=== PATIENT | female | born 1980 | race Caucasian/White ===

== ENCOUNTER 2016-08-26 17:29 | Inpatient (IN) | payer MEDICAID ==
[~2016-08-26] VITALS: Ht 152.4 cm; Wt 79.4 kg
[2016-08-26 17:55] LABS: BASOPHILS 0.2 % (0.0-2.0); EOSINOPHILS 0.3 % (0-7); IMMATURE GRANULOCYTES 0.4 % (0-5); MCH 30.2 pg (26.0-34.0); MCHC 33.3 g/dL (31.0-37.0); MCV 90.5 fL (80.0-100.0); MEAN PLATELET VOLUME 10.3 fL (7.4-10.4); MONOCYTES 10.2 % (2-11); NEUTROPHILS 75.9 % (40-80); PLATELET COUNT 329 10x3/uL (130-400); RBC 4.64 10x6/uL (4.00-5.40); RDW 13.3 % (11.5-14.5); WBC 14.1 10x3/uL (4.8-10.8)
[2016-08-26 18:18] LABS: APPEARANCE CLOUDY (CLEAR); BACTERIA MODERATE /hpf (NONE SEEN); BILIRUBIN NEGATIVE (NEGATIVE); COLOR DK YELLOW (YELLOW); GLUCOSE NEGATIVE (NEGATIVE); KETONE LARGE mg/dL (NEGATIVE); LEUKOCYTE ESTERASE TRACE (NEGATIVE); MUCUS <1+ /lpf (NONE SEEN); NITRITE NEGATIVE (NEGATIVE); PROTEIN NEGATIVE (NEGATIVE); RED CELLS - URINE 0-5 /hpf (0-5); WHITE CELLS - URINE OCC /hpf (0-5)
[2016-08-26 18:24] LABS: HCG URINE NEGATIVE (NEGATIVE)
[2016-08-26 18:36] LABS: ALBUMIN 2.9 g/dL (3.4-5.0); ALKALINE PHOSPHATASE 340 U/L (46-116); ALT (SGPT) 92 U/L (10-68); AMYLASE - SERUM 18 U/L (25-115); CALC OSMOLALITY 269 mosm/kg (275-300); CALCIUM 9.1 mg/dL (8.5-10.1); CARBON DIOXIDE 25.8 mmol/L (21.0-32.0); CHLORIDE - SERUM 96 mmol/L (98-107); CREATININE - SERUM 0.6 mg/dL (0.6-1.3); LIPASE 85 U/L (73-393); POTASSIUM - SERUM 4.1 mmol/L (3.5-5.1); PROTEIN - SERUM 7.4 g/dL (6.4-8.2); SODIUM 135 mmol/L (136-145); UREA NITROGEN 7 mg/dL (7-18); eGFR NON AFRICAN AMERICAN > 90 mL/min (90-120)
[2016-08-26 18:38] LABS: GLUCOSE 139 mg/dL (74-106)
[2016-08-26 22:46] VITALS: BP 118/72; BMI 34.2
--- NOTE | 2016-08-26 23:16 | NUR ---
REC'D FROM ER DEPT PER WC TO ROOM 2237 A 36 Y/O W/FE PER SERVICES DR. VANEGAS WITH DX CHOLECYCTITIS. ALLERGIC TO CLOVES. SALINE LOCK PATENT RT ARM SALINE LOCK. ASSESSMENT PER ADMIT PACKET. EATING REGULAR SANDWICH TRAY THEN WILL BE NPO AFTER MIDNIGHT.
[2016-08-27] VITALS (11 sets, daily range): BP systolic 100–130; BP diastolic 49–87
--- NOTE | 2016-08-27 00:32 | NUR ---
C/O PAIN IN ABDOMEN RATES PAIN LEVEL #6. DILAUDID 1MG IVP GIVEN FOR PAIN CONTROL.
--- NOTE | 2016-08-27 02:00 | NUR ---
MEDS GIVEN PER SEP. SALINE LOCK PATENT RT ARM.
--- NOTE | 2016-08-27 03:00 | NUR ---
REMAINS NPO FOR POSSIBLE SURGERY.
--- NOTE | 2016-08-27 05:28 | NUR ---
RESTING QUIETLY DENIES NEEDS.
--- NOTE | 2016-08-27 07:05 | NUR ---
PT LYING SUPINE WITH EYES CLOSED AND RESPIRATIONS EVEN AND NON LABORED. CALL LIGHT IN REACH, BED IN LOWEST POSITION WITH WHEELS LOCKED AND SRX2. WILL CONTINUE WITH PLAN OF CARE.
--- NOTE | 2016-08-27 08:00 | NUR ---
SCHEDULED MEDICATIONS ADMINISTERED AT THIS TIME WELL PRN DILAUDID 1MG IV FOR PAIN 6/10 ABDOMINALLY. IV TO RIGHT FOREARM PATENT. BOLUS OF NS INITIATED AT THIS TIME PER ORDER. ASSESSMENT PERFORMED PER FLOWSHEET. REMAINS NPO FOR SURGERY AND DR VANEGAS IN ROOM ASSESSING PT. CALL LIGHT IN REACH, WILL CONTINUE WITH PLAN OF CARE.
--- NOTE | 2016-08-27 08:50 | NUR ---
PRN TYLENOL 650MG ADMINISTERED AT THIS TIME FOR TEMPERATURE 101.3. CONSENT FORMS SIGNED AND WITNESSED FOR LAPARASCOPIC CHOLECYSTECTOMY AT THIS TIME. DENIES NEEDS OR PAIN. CALL LIGHT IN REACH, WILL CONTINUE WITH PLAN OF CARE. NS BOLUS COMPLETE AND IV FLUIDS INITIATED PER ORDER.
--- NOTE | 2016-08-27 09:56 | NUR ---
TEMPERATURE RE-CHECKED AND 97.5 TEMPORAL AT THIS TIME. PT REMAINS NPO AND DENIES PAIN. CALL LIGHT IN REACH, WILL CONTINUE WITH PLAN OF CARE.
--- NOTE | 2016-08-27 11:31 | NUR ---
Patient Name: ESVIN BERNARD Admission Status: ER Accout number: [id number] Admission Date: 08-26-2016 : 1980 Admission Diagnosis: Attending: RAMON Current LOS: 1 Anticipated DC Date: 08-29-2016 Planned Disposition: Home or Self Care Primary [facility] [place] [facility] Discharge Planning Comments: CM MET WITH PATIENT REGARDING D/C NEEDS AND PLANS. PATIENT STATED SHE LIVES WITH FAMILY AND THEY ARE A FRIEND WILL PICK HER UP AT DISCHARGE. PATIENT STATED THERE ARE 3 STEPS W/RAILS TO ENTER HOME AND NO STAIRS INSIDE. PATIENT STATED SHE IS INDEPENDENT AND HAS NO DME AT HOME. PATIENTS PCP IS DR. KRISTINA DOWNING AND PHARMACY IS [facility] [address]. PATIENT DOES NOT THINK SHE WILL NEED HOME HEALTH. CM WILL CONTINUE TO FOLLOW PATIENT WITH D/C NEEDS AND PLANS. PCP DR. KRISTINA [facility] [address] [phone] ELISE PORTER (SISTER) [phone] Extractions Technician: Rosalia Reyna Is the patient Alert and Oriented? Yes 0 * How many steps to enter\exit or inside your home? 3 W/RAILS 0 * PCP DR. KRISTINA DOWNING 0 * Pharmacy [facility] [address] 0 * Preadmission Environment Home with Family 0 * ADLs Independent 0 * Equipment None 0 * List name and contact numbers for known caregivers / representatives who currently or will assist patient after discharge: CHADWICK PORTER (SISTER) [phone] * Community resources currently utilized None 0 * Additional services required to return to the preadmission environment? Yes 0 * Can the patient safely return to the preadmission environment? Yes 0 * Has this patient been hospitalized within the prior 30 days at any hospital? No 0 Grand Total: 0
--- NOTE | 2016-08-27 12:33 | NUR ---
PRE OPERATIVE MEDICATIONS ADMINISTERED AT THIS TIME. IV TO RIGHT FOREARM REMAINS PATENT. PT DENIES ANY QUESTIONS OR CONCERNS RELATED TO MEDICATIONS.
--- NOTE | 2016-08-27 12:48 | NUR ---
TAKEN TO OR AT THIS TIME. WILL MONITOR PT WHEN SHE RETURNS TO HER ROOM.
--- NOTE | 2016-08-27 16:55 | NUR ---
RECEIVED BACK TO ROOM 2237 AT THIS TIME FROM RECOVERY. PT IS LETHARGIC, BUT AROUSABLE. IV TO RIGHT FOREARM PATENT. LAP SITES X4 TO ABDOMEN WITH ARNULFO DRAIN COMING FROM WITHIN 4TH LAP SITE. SCD'S ON AND IN WORKING ORDER. CALL LIGHT IN REACH AND VITAL SIGNS INITIATED PER POST PROCEDURE PROTOCOL. WILL CONTINUE WITH PLAN OF CARE.
--- NOTE | 2016-08-27 17:37 | NUR ---
PRN DILAUDID ADMINISTERED AT THIS TIME FOR PAIN 9/10 AT THIS TIME. ARNULFO DRAIN EMPTIED 110ML OF BLOODY LIQUID. DENIES FURTHER NEEDS. CALL LIGHT IN REACH, WILL CONTINUE WITH PLAN OF CARE.
--- NOTE | 2016-08-27 18:30 | NUR ---
ASSISTED PT UP TO BATHROOM AT THIS TIME, WHERE SHE VOIDED WITHOUT DIFFICULTY. ASSISTED BACK TO BED. CALL LIGHT IN REACH. WILL CONTINUE WITH PLAN OF CARE.
[2016-08-28 04:00] VITALS: BP 121/73
--- NOTE | 2016-08-28 04:03 | NUR ---
PT LAYING IN BED ARNULFO DRAIN DRAINED 2X THROUGH OUT SHIFT BLOODY DRAINAGE EMPTIED PT C/O PAIN AND PAIN MEDS ADMIN ORDERED PT AMBULATORY TO BATH ROOM WITH NO ASSISTANCE NEEDED CALL LIGHT IN REACH SRX2 BED LOW AND LOACKED RESPERATIONS EVEN AND UNLABORED WILL MONITOR
[2016-08-28 06:20] LABS: BASOPHILS 0.2 % (0.0-2.0); EOSINOPHILS 0.2 % (0-7); HEMATOCRIT 30.2 % (36.0-48.0); HEMOGLOBIN 9.8 g/dL (12-16); IMMATURE GRANULOCYTES 0.7 % (0-5); LYMPHOCYTES 22.5 % (15-50); MCH 29.3 pg (26.0-34.0); MCHC 32.5 g/dL (31.0-37.0); MCV 90.4 fL (80.0-100.0); MEAN PLATELET VOLUME 10.4 fL (7.4-10.4); MONOCYTES 8.3 % (2-11); NEUTROPHILS 68.1 % (40-80); PLATELET COUNT 329 10x3/uL (130-400); RBC 3.34 10x6/uL (4.00-5.40); RDW 13.9 % (11.5-14.5); WBC 11.9 10x3/uL (4.8-10.8)
[2016-08-28 06:31] LABS: ALKALINE PHOSPHATASE 210 U/L (46-116); ALT (SGPT) 106 U/L (10-68); CALCIUM 7.5 mg/dL (8.5-10.1); CARBON DIOXIDE 25.9 mmol/L (21.0-32.0); CHLORIDE - SERUM 102 mmol/L (98-107); CREATININE - SERUM 0.5 mg/dL (0.6-1.3); GLUCOSE 182 mg/dL (74-106); POTASSIUM - SERUM 3.8 mmol/L (3.5-5.1); PROTEIN - SERUM 5.7 g/dL (6.4-8.2); SODIUM 135 mmol/L (136-145); eGFR NON AFRICAN AMERICAN > 90 mL/min (90-120)
[2016-08-28 06:33] LABS: ALBUMIN 2.1 g/dL (3.4-5.0); CALC OSMOLALITY 271 mosm/kg (275-300); UREA NITROGEN 4 mg/dL (7-18)
--- NOTE | 2016-08-28 07:56 | NUR ---
AWAKE AND ALERT. ORIENTED X3. NO C/O AT THIS TIME. DR. VANEGAS HERE AND CHANGED PAIN MEDS. WILL START NEW ONES THIS AM FOR BETTER PAIN MANAGEMENT. LUNGS ARE CLEAR BILATERALLY, NO COUGH NOTED. SKIN IS INTACT WITHOUT REDNESS EXCEPT 4 SMALL INSERTION SITES FROM LAP. ARNULFO PATENT WITH SEROUS SANGUINESS DRAINAGE NOTED. IV TO RIGHT FOREARM IS PATENT WITHOUT REDNESS AT INSERTION SITE. DISCUSSED PLAN OF CARE WITH PATIENT AND SHE IS AGREEABLE.
[2016-08-28 08:55] VITALS: BP 102/69
--- NOTE | 2016-08-28 09:00 | NUR ---
REQUESTED AND GIVEN ONE PERCOCET PO FOR C/O ABDOMINAL PAIN LEVEL 6. WILL MONITOR.
--- NOTE | 2016-08-28 10:30 | NUR ---
AMBULATED 500 FEET IN HALLWAY PER SELF. O2 SAT 95% ON RA AFTER ACTIVITY. DENIES NEEDS.
--- NOTE | 2016-08-28 12:30 | NUR ---
REQUESTED AND GIVEN ONE PERCOCET PO FOR C/O ABDOMINAL PAIN LEVEL 5. WILL MONITOR. LUNCH SERVED IN ROOM.
[2016-08-28 13:04] VITALS: BP 110/72
--- NOTE | 2016-08-28 15:30 | NUR ---
LINENS CHANGED PER STAFF. AMBULATED THE ENTIRE UPPER [place] AROUND THE NURSE'S STATION PER SELF WITHOUT DIFFICULTY. DENIES NEEDS AT THIS TIME. ARNULFO INSERTION SITE LEAKED THROUGH. DRESSING CHANGED TO SAME.
[2016-08-28 16:03] VITALS: BP 118/77
--- NOTE | 2016-08-28 16:48 | NUR ---
REQUESTED AND GIVEN ONE PERCOCET PO FOR C/O ABDOMINAL PAIN LEVEL 4. WILL CONTINUE TO MONITOR.
--- NOTE | 2016-08-28 18:10 | NUR ---
RESTING QUIETLY WITH EYES CLOSED. REPORTS STILL SIPPING ON SUPPER. NO CHANGES NOTED. DENIES NEEDS.
[2016-08-28 20:38] VITALS: BP 105/71
--- NOTE | 2016-08-28 23:41 | NUR ---
PT ASSESSMENT COMPLETED PT AMBULATED IN HALLWAYS APPX 500 FT WITH NO ASSITANCE AND NO DISTRESS OBSERVED PT THEN WENT BACK TO BED AND RATED PAIN 2/10 AND PT REQUESTED PAIN MEDS PO HS MEDS ADMIN ORDERED WITH PAIN MEDS
[2016-08-29] VITALS: BP 93/64
--- NOTE | 2016-08-29 00:12 | NUR ---
PT C/O PAIN AT THIS TIME PAIN MEDS ADMIN ORDERED WILL MONITOR
--- NOTE | 2016-08-29 01:21 | NUR ---
PT C/O INDEGESTION FOR PAST 12 HOURS NO ORDERS FOR ANTACIDS AT THIS TIME WILL MONITOR
[2016-08-29 04:00] VITALS: BP 100/62
--- NOTE | 2016-08-29 07:50 | NUR ---
PT RESTING IN BED, EASILY AROUSED WHEN TALKED TO, ARNULFO DRAINED 40 CC BLOODY OUTPUT, WILL CONTINUE TO MONITOR. CALL LIGHT IN REACH.
--- NOTE | 2016-08-29 08:05 | NUR ---
PT ASSESSMENT COMPLETE, DENIES NEEDS, AWAKE AND ORIENTED X3, LUNGS CLEAR, NO COUGH NOTED, ARNULFO PATENT WITH BLOODY DRAINAGE, ADMINISTERED MEDS PER eMAR, WILL CONTINUE PLAN OF CARE
[2016-08-29 09:00] VITALS: BP 110/72
--- NOTE | 2016-08-29 11:35 | NUR ---
IV TO LEFT FOREARM LEAKING AROUND INSERTION SITE. IV D/C WITH CATH TIP INTACT. ATTEMPTED 22G IV TO LEFT UPPER FOREARM X1 ATTEMPT. ATTEMPT UNSUCCESSFUL. PT TOLERATED WITH MINIMAL C/O PAIN. REQUESTING PAIN PILL FOR PAIN 6/10 ABDOMINALLY. NOTIFIED PADMINI BUI OF PT'S REQUEST. MARQUES MCCAULEY ATTEMPTING IV START ON PT.
[2016-08-29 12:45] VITALS: BP 110/82
[2016-08-29 16:28] VITALS: BP 114/78
[2016-08-29 19:00] VITALS: BP 108/76
--- NOTE | 2016-08-29 22:50 | NUR ---
ARNULFO DRAIN EMPTIED NO DISTRESS OBSERVED CALL LIGHT IN REACH SRX2 BED LOW AND LOCKED RESPERATIONS EVEN AND UNLABORED WILL MONITOR
[2016-08-30] VITALS: BP 122/81
[2016-08-30 04:00] VITALS: BP 122/78
--- NOTE | 2016-08-30 05:42 | NUR ---
PT LAYING IN BED NO DISTRESS OBSERVED CALL LIGHT IN REACH SRX2 WILL MONITOR
[2016-08-30 05:44] LABS: BASOPHILS 0.4 % (0.0-2.0); EOSINOPHILS 3.7 % (0-7); HEMATOCRIT 25.9 % (36.0-48.0); HEMOGLOBIN 8.6 g/dL (12-16); IMMATURE GRANULOCYTES 1.1 % (0-5); LYMPHOCYTES 36.6 % (15-50); MCH 29.7 pg (26.0-34.0); MCHC 33.2 g/dL (31.0-37.0); MCV 89.3 fL (80.0-100.0); MONOCYTES 6.8 % (2-11); NEUTROPHILS 51.4 % (40-80); PLATELET COUNT 329 10x3/uL (130-400); RDW 13.5 % (11.5-14.5)
[2016-08-30 06:24] LABS: ALBUMIN 1.8 g/dL (3.4-5.0); ALKALINE PHOSPHATASE 144 U/L (46-116); CALC OSMOLALITY 270 mosm/kg (275-300); CARBON DIOXIDE 27.5 mmol/L (21.0-32.0); CHLORIDE - SERUM 101 mmol/L (98-107); CREATININE - SERUM 0.5 mg/dL (0.6-1.3); GLUCOSE 113 mg/dL (74-106); PROTEIN - SERUM 6.1 g/dL (6.4-8.2); SODIUM 137 mmol/L (136-145); UREA NITROGEN 1 mg/dL (7-18); eGFR NON AFRICAN AMERICAN > 90 mL/min (90-120)
[2016-08-30 06:25] LABS: ALT (SGPT) 54 U/L (10-68)
[2016-08-30 06:29] LABS: WBC 7.3 10x3/uL (4.8-10.8)
--- NOTE | 2016-08-30 07:35 | NUR ---
PATIENT IS ASLEEP AND RESTING QUIETLY THIS MORNING. SHE AWOKE EASILY TO MY ENTRY. SHE DENIES NEEDS AT THIS TIME BUT HAS REQUESTS FOR SOFT FOODS WHEN ABLE. SHE IS PASSING GAS THIS MORNING. RATES HER PAIN A 6 AND WOULD LIKE MEDICATION WHEN AVAILABLE. SHE AMBULATES INDEPENDENTLY TO THE RESTROOM.
[2016-08-30 08:59] VITALS: BP 125/84
--- NOTE | 2016-08-30 10:26 | NUR ---
PATIENT IS RESTING QUIETLY WITH EYES CLOSED. SHE AWOKE TO MY VOICE BUT NOT TO MY ENTRY. SHE STATES THAT HER PAIN IS MINIMAL. A 3. EXPLAINED THE MECHANISM IN WHICH TORADOL WORKS AND GAVE IN THE PATENT LEFT WRIST IV. SHE WAS PULLING COVERS UP AND GETTING COMFORTABLE I LEFT, LIGHTS OUT CALL LIGHT IS WITHIN REACH.
--- NOTE | 2016-08-30 10:50 | NUR ---
PATEINT RESTING QUIELTY WITH EYES CLOSED. DID NOT DISTURB
[2016-08-30 16:08] VITALS: BP 127/47
[2016-08-30 19:00] VITALS: BP 138/87
--- NOTE | 2016-08-30 19:08 | NUR ---
PATIENT HAS BEEN RESTING QUIETLY THROUGHOUT THE EVENING. DENIES NEEDS.
--- NOTE | 2016-08-30 19:25 | NUR ---
RECIEVED SHIFT REPORT. PT IS LYING IN BED. ALERT AND ORIENTED AND ABLE TO VERBALIZE NEEDS. IV IS PATENT AND FLUIDS ARE RUNNING PER ORDER. PT IS AMBULATORY BUT WAS INSTRUCTED TO CALL FOR ANY ASSISTANCE NEEDED. LAP SITES X 3 TO ABDOMEN C/D/I. ARNULFO DRAIN TO RIGHT UPPER QUADRANT INTACT AND COMPRESSED. PT STATES PAIN IS 5/10. NO NEEDS ARE VERBALIZED AT THIS TIME. WILL CONTINUE TO MONITOR. SIDE RAILS ARE UP X 2. BED IS IN LOWEST POSITION. CALL LIGHT IS WITHIN REACH.
--- NOTE | 2016-08-30 20:48 | NUR ---
SHIFT ASSESSMENT COMPLETED. NIGHT MEDS GIVEN WITH NO PROBLEMS. NO NEEDS ARE VOICED. WILL MONITOR. SIDE RAILS X 2. BED LOW. CALL LIGHT IN REACH.
[2016-08-31] VITALS (11 sets, daily range): BP systolic 121–147; BP diastolic 75–94
--- NOTE | 2016-08-31 08:05 | NUR ---
PATIENT AWAKE, WALKING OUT OF BATHROOM. ALERT/ORIENT X4. LEFT HAND PHERIAL LINE OVE TO KVO WITH NORMAL SAILINE. TELEMTRY IN PLACE. RUNNING SR.
--- NOTE | 2016-08-31 10:42 | NUR ---
PATIENT TAKEN OFF UNIT FOR ERCP BY STAFF
--- NOTE | 2016-08-31 11:09 | NUR ---
1100 TELEMENTARY DC'D LOCAL MONITORING REMOVED. MEFOXIN 1 GRAM INITIATED
--- NOTE | 2016-08-31 12:30 | NUR ---
PATIENT JUST BROUGHT BACK FROM HAVING ERCP. VITAL SIGNS TAKEN. PATIENT ALERT/ORIENT X4. HELPED INTO BATHROOM. IV LEFT HAND RESTARTED TO KVO.
--- NOTE | 2016-08-31 13:55 | NUR ---
PATIENT RESTING WELL. VITAL SIGNS TAKEN PER PROTOCHOL.
--- NOTE | 2016-08-31 16:45 | NUR ---
PATIENT REQUESTED IV N/S BE DISCONNECTED SO SHE COULD GO OUT AND SMOKE
--- NOTE | 2016-08-31 17:21 | NUR ---
PATIENT BACK IN ROOM. EATTING A FULL LIQ DIET. VOICES NO C/O PAIN/DISC AT THIS TIME
--- NOTE | 2016-08-31 19:40 | NUR ---
RECIEVED SHIFT REPORT. PT IS LYING IN BED. ALERT AND ORIENTED AND ABLE TO VERBALIZE NEEDS. IV IS PATENT AND FLUIDS ARE RUNNING PER ORDER. PT IS AMBULATORY BUT WAS INSTRUCTED TO CALL FOR ANY ASSISTANCE NEEDED. DRESSINGS TO ABDOMEN C/D/I. ARNULFO DRAIN INTACT WITH SITE CLEAN AND COMPRESSED. PT STATES PAIN IS 4/10. NO NEEDS ARE VERBALIZED AT THIS TIME. WILL CONTINUE TO MONITOR. SIDE RAILS ARE UP X 2. BED IS IN LOWEST POSITION. CALL LIGHT IS WITHIN REACH.
--- NOTE | 2016-08-31 21:46 | NUR ---
SHIFT ASSESSMENT COMPLETED. NIGHT MEDS GIVEN WITH NO PROBLEMS. NO NEEDS ARE VOICED. WILL MONITOR. SIDE RAILS X 2. BED LOW. CALL LIGHT IN REACH.
[2016-09-01 05:03] VITALS: BP 123/68
[2016-09-01 05:41] LABS: BASOPHILS 0.5 % (0.0-2.0); EOSINOPHILS 3.1 % (0-7); HEMATOCRIT 25.8 % (36.0-48.0); HEMOGLOBIN 8.4 g/dL (12-16); IMMATURE GRANULOCYTES 1.8 % (0-5); LYMPHOCYTES 40.9 % (15-50); MCH 29.1 pg (26.0-34.0); MCHC 32.6 g/dL (31.0-37.0); MCV 89.3 fL (80.0-100.0); MEAN PLATELET VOLUME 9.9 fL (7.4-10.4); MONOCYTES 8.4 % (2-11); NEUTROPHILS 45.3 % (40-80); RBC 2.89 10x6/uL (4.00-5.40); RDW 13.9 % (11.5-14.5); WBC 7.4 10x3/uL (4.8-10.8)
[2016-09-01 05:49] LABS: PLATELET COUNT 409 10x3/uL (130-400)
[2016-09-01 05:58] LABS: ALBUMIN 1.7 g/dL (3.4-5.0); ALKALINE PHOSPHATASE 155 U/L (46-116); CALCIUM 7.9 mg/dL (8.5-10.1); CARBON DIOXIDE 26.8 mmol/L (21.0-32.0); CHLORIDE - SERUM 106 mmol/L (98-107); CREATININE - SERUM 0.5 mg/dL (0.6-1.3); GLUCOSE 127 mg/dL (74-106); POTASSIUM - SERUM 3.2 mmol/L (3.5-5.1); PROTEIN - SERUM 5.7 g/dL (6.4-8.2); SODIUM 141 mmol/L (136-145); eGFR NON AFRICAN AMERICAN > 90 mL/min (90-120)
[2016-09-01 06:07] LABS: ALT (SGPT) 34 U/L (10-68); CALC OSMOLALITY 278 mosm/kg (275-300); UREA NITROGEN 2 mg/dL (7-18)
--- NOTE | 2016-09-01 07:00 | NUR ---
REPORT RECEIVED FROM SURVEYOR HELPER NURSE. CALL LIGHT IN REACH.
--- NOTE | 2016-09-01 08:25 | NUR ---
NURSE COMMODITIES CLERK STATED PATIENT WANTED HER PAIN MEDS NOW BECAUSE SHE WASN'T ABLE TO TAKE THEM DURING THE NIGHT BECAUSE OF HER HEART RATE.
--- NOTE | 2016-09-01 08:27 | NUR ---
CM REASSESSMENT NOTE: PATIENT IS STILL REFUSING HOME HEALTH AND DENIED ANY OTHER NEEDS AT THIS TIME. CM WILL CONTINUE TO FOLLOW PATIENT WITH D/C NEEDS AND PLANS.
[2016-09-01 08:32] VITALS: BP 133/80
--- NOTE | 2016-09-01 08:44 | NUR ---
ASSESSMENT COMPLETED. LOVENOX SUBQ TO LLQ. DOES NOT WANT TORADOL AT THIS TIME. STATES SHE WANTS PERCOCET SO PERCOCET PO GIVEN. CALL LIGHT IN REACH. WILL CONTINUE WITH PLAN OF CARE.
--- NOTE | 2016-09-01 10:10 | NUR ---
TORADOL SIVP PER ORDER. STATES SHE HAD A LARGE BM.
[2016-09-01 11:30] VITALS: BP 146/77
--- NOTE | 2016-09-01 11:40 | NUR ---
PATIENT TOLD STUDENT NURSE THAT SHE WANTED ANOTHER PAIN PILL. PULLED MED BUT REALIZED IT WAS TOO SOON. EXPLAINED THAT TO PATIENT. VERBALIZED UNDERSTANDING.
--- NOTE | 2016-09-01 11:51 | NUR ---
DC'D TO VEHICLE VIA [facility].
--- NOTE | 2016-09-01 12:23 | NUR ---
PERCOCET PO PER C/O PAIN. EATING LUNCH AT THIS TIME. CALL LIGHT IN REACH.
[2016-09-01] MEDS ORDERED: PERCOCET 10/3251 TA1 PO (12:44)
--- NOTE | 2016-09-01 12:56 | NUR ---
SITTING UP IN BED JUST FINISHED A CL TRAY. NO C/O AT THIS TIME. DENIES NEEDS. ARNULFO TO RIGHT LOWER ABDOMEN PATENT WITH SEROUS SANGUINESS DRAINAGE. INSTRUCTED IN MILKING THE LINE, HOW TO EMPTY AND TO KEEP JOURNEL OF OUTPUT. PATIENT VERBALIZED UNDERSTANDING OF SAME. ALL QUESTIONS ANSWERED.
--- NOTE | 2016-09-01 13:30 | NUR ---
PERSONNEL ANALYST REMOVED PERIPHERAL IV WITH TIP INTACT. QAUZE AND PAPER TAPE APPLIED TO SITE.
[2016-09-01 13:49] VITALS: Ht 152.4 cm; Wt 79.4 kg
--- NOTE | 2016-09-01 15:00 | NUR ---
PATIENT WAS ABOUT TO LEAVE WHEN 2 SWAT MEMBERS WALKED ON THE FLOOR AND STATED SHE WAS GOING TO HAVE TO GO TO [facility] ON A [place] WARRANT. MARQUES NIETO, SPOKE WITH THEM AND THEY SPOKE WITH THE PAPER SAMPLE CLERK ABOUT PATIENT'S MEDICAL HX. CHARGES DROPPED.
--- NOTE | 2016-09-17 13:33 | OP ---
PATIENT NAME: ESVIN BERNARD MEDICAL RECORD: [id number] :[birth year] LOCATION:[id number] ADMISSION DATE:08/26/16 SURGEON: SAJI VANEGAS MD DATE OF OPERATION: 08/27/2016 PREOPERATIVE DIAGNOSES: 1. Acute cholecystitis. 2. Tobacco dependent syndrome. POSTOPERATIVE DIAGNOSES: 1. Acute cholecystitis. 2. Tobacco dependent syndrome. PROCEDURE: Laparoscopic cholecystectomy. SURGEON: Saji Vanegas MD REPORT OF PROCEDURE: The patient's abdomen was prepped and draped in sterile fashion. A cutdown was made on the superior aspect of the umbilicus, 0 Vicryls were placed in the fascia bilaterally and the fascia was incised with 15-blade. I then bluntly entered the peritoneal cavity and placed a 12-mm Juan port. Under direct visualization, a 5 mm trocar was placed in the epigastrium and 2 more 5-mm trocars were placed in the right subcostal region. Immediately, we could see the gallbladder was very distended and swollen and consistent with acute cholecystitis. A needle was used to penetrate the gallbladder and there was removal of clear fluid consistent with hydrops gallbladder. Eventually, we dissected off the fatty adhesions present to the fundus of the gallbladder. As we dissected down towards infundibulum, the inflammation became very severe. It was very difficult to make out many of the structures in this area. I eventually was able to find the patient's cystic duct. I could clearly visualize it and I could see it coming from the gallbladder and leading down. I clipped this proximally and distally and ligated this in standard fashion. I then found what appeared to be the cystic artery. Clips were placed proximally and distally and it was ligated. Immediately after ligation, there was spillage of arterial blood flow. I had to dissect down and had a lot of difficulty finding where the actual bleeding was coming from. As I dissected down, I was holding pressure over the area of bleeding, anytime I would release pressure for quite a while, it would continue with pulsatile blood flow. I eventually just held pressure for quite a long time and tried to dissect around posteriorly to this. I was eventually able to dissect back around the structures of the liver and I still could not clearly visualize where exactly the bleeding was coming from. This took a significant amount of time and by the time I finally let go, the bleeding had actually stopped. I did notice there was a small duct that was present, it was extremely small in caliber, consistent with a small duct of Luschka, I placed clips proximally and distally as this did have a small leak present. I then irrigated out the abdominal cavity of any blood that was present and took the gallbladder off the liver bed. I looked back multiple times and irritated the area of dissection to see if there is any sign of any bile leakage or arterial blood flow, approximately 15-20 minutes was spent irrigating and manipulating the tissues, trying to find any evidence of a possible leak or bleeding. At the conclusion of the case, there was none. The clips all appeared to be in good position and I could see the cystic duct well and the clips were in good position and the cystic duct itself appeared to be normal size and caliber. The liver bed was inspected and there was no sign of any surgical bleeding. I then placed Lorraine in the gallbladder fossa and then OPERATIVE REPORT [id number] ESVIN BERNARD inserted a 15-Tamazight Tao drain in through the most lateral subcostal incision and placed it at the base of the liver fossa. At this point, the ports and insufflation were then removed. The drain was sutured in place with a 4-0 nylon. The gallbladder was taken out through the umbilicus and in order to perform this, had to open the gallbladder up and there is removal of a large amount of very large stones. The umbilical fascia was then closed with interrupted 0 Vicryls times 4. The wounds were then irrigated out with normal saline and infused with 10 mL of 0.25% Marcaine with epinephrine. The skin incisions were all closed with subcutaneous 5-0 Monocryl and dressed appropriately. COMPLICATIONS: None. CONDITION: Stable. ANESTHESIA: General endotracheal and local. BLOOD LOSS: 300 mL. TRANSINT:[id number] Voice Confirmation ID: [id number] DOCUMENT ID: [id number] SAJI VANEGAS MD at 1333 CC: [id number] DICTATION DATE: 08/27/16 1547 [employer]IAL INTERNSHIP: 08/27/161922 DIS IN 09/01/16 [facility] [address] [place] [address]
--- NOTE | 2016-10-22 13:21 | DS ---
PATIENT:ESVIN BERNARD :78 MEDICAL RECORD: [id number] DISCHARGE SUMMARY ADMISSION DATE: 08/26/16 DISCHARGE DATE: 09/01/16 DATE OF ADMISSION: 08/27/2016 DATE OF DISCHARGE: 09/01/2016 ADMISSION DIAGNOSES: 1. Acute cholecystitis. 2. Tobacco dependence syndrome. DISCHARGE DIAGNOSES: 1. Acute cholecystitis. 2. Tobacco dependence syndrome. 3. Postoperative bile leak. PROCEDURES: 1. Laparoscopic cholecystectomy on 08/27/2016. 2. ERCP with sphincterotomy and stent placement on 08/31/2016. CONSULTATIONS: GI with Dr. Todd. REPORT OF HOSPITALIZATION: The patient was admitted to the hospital with findings of acute cholecystitis. The patient was given IV Zosyn and taken to the operating room. In the operating room, the patient had a severely inflamed gallbladder, which made the surgery very difficult. At the time of surgery, there was concern there may be some sort of a bile leak or injury as the patient had a significant amount of arterial bleeding and more significant dissection had to be performed than what is normally appropriate for that surgery. The patient did have a drain left in place and it showed evidence of a bile leak a couple days later. A PIPIDA scan was performed and it showed evidence of radiotracer being present in the drain consistent with a bile leak. At that point, GI was consulted and Dr. Todd was nice enough to evaluate the patient and took her to the operating room where she underwent an ERCP. At that time, we found a small bile leak and treated this with a sphincterotomy and stent placement. The bile leakage decreased significantly over the next day and she was felt to be stable at that point for discharge home. On the day of discharge, she was actually picked up by the drug task force and arrested. She still had a drain in place at the time of arrest. DISCHARGE INSTRUCTIONS: 1. Return to clinic or call if any questions or concerns, fevers, chills, nausea, vomiting or worsening abdominal pain. 2. Record drain output daily. FOLLOWUP: In clinic with me in the following week for possible drain removal. DISCHARGE MEDICATIONS: Percocet 10. TRANSINT:[id number] Voice Confirmation ID: [id number] DOCUMENT ID: [id number] DISCHARGE SUMMARY REPORT [id number] ESVIN BERNARD CHRISTIAN MD at 1321 CC: [id number] DICTATION DATE: 09/23/16 1259 SMALL BUSINESS CONSULTANT: 09/24/16 0541 DIS IN 09/01/16 [facility] [address] [id number]
== END 2016-09-01 15:20 | disposition home or self-care (01) | DRG 418 ==
LOC: D.ER 17:29 → D.MS 20:39
PROVIDERS: Emergency Medicine; Internal Medicine Gastroenterology; ADMIT Surgery
PROC: 0FT44ZZ Resection of Gallbladder, Percutaneous Endoscopic Approach (ICD-10-PCS; principal; 2016-08-27 11:45)
PROC: 0F798DZ Dilation of Common Bile Duct with Intraluminal Device, Via Natural or Artificial Opening Endoscopic (ICD-10-PCS; 2016-08-31)
PROC: BF101ZZ Fluoroscopy of Bile Ducts using Low Osmolar Contrast (ICD-10-PCS; 2016-08-31)
DX: K80.00 Calculus of gallbladder with acute cholecystitis without obstruction (principal); K91.89 Other postprocedural complications and disorders of digestive system; K82.1 Hydrops of gallbladder; F17.200 Nicotine dependence, unspecified, uncomplicated